=== PATIENT | female | born 2000 | race African-American/Black ===

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

== ENCOUNTER 2022-06-09 00:40 | Emergency (ER) | payer OTHER | END 2022-06-09 03:05 | disposition home or self-care (01) | LOC: ERS 00:40 | DX: S93.602A Unspecified sprain of left foot, initial encounter (principal); X50.1XXA Overexertion from prolonged static or awkward postures, initial encounter ==

== ENCOUNTER 2022-09-14 21:54 | Emergency (ER) | payer OTHER ==
[2022-09-14] MEDS ORDERED: diphenhydrAMINE 50 MG CAP ONE (22:21)
[2022-09-14] MEDS ORDERED: Prochlorperazine 10 MG/2 ML VIAL ONE (22:21)
[2022-09-14] MEDS ORDERED: Prochlorperazine Maleate 5 MG TAB ONE (22:22)
[2022-09-14] MEDS ORDERED: Acetaminophen 500 MG TAB ONE (22:25)
== END 2022-09-15 | disposition home or self-care (01) ==
LOC: ERS 21:54
DX: R51.9 Headache, unspecified (principal); R11.0 Nausea
CPT/HCPCS: 99283; J0780; Q0164

== ENCOUNTER 2023-11-04 10:02 | Emergency (ER) | payer OTHER, SELFPAY | END 2023-11-04 10:20 | disposition home or self-care (01) | LOC: ERS 10:02 | DX: J06.9 Acute upper respiratory infection, unspecified (principal) | CPT/HCPCS: 99284 ==